=== PATIENT | female | born 1995 | race Caucasian/White ===

== ENCOUNTER 2016-12-03 16:30 | Emergency (ER) | payer MEDICAID ==
[2016-12-03 16:35] VITALS: BP 126/65; PULSE 104; RESP 16; TEMP 97.9; O2SAT 100
[2016-12-03] MEDS ORDERED: DEXAMETHASONE VARIABLE DOSE IVP/PO ONE (16:54)
--- NOTE | 2016-12-03 17:09 | UCPHY ---
H & P Patient Type: New Chief Complaint Nursing Narrative: C/o sore throat, sinus congestion and pain x 2 days. Denies fevers. Time Seen by Provider: 12/03/16 16:49 HPI/ROS: CHIEF COMPLAINT: Sore throat HISTORY OF PRESENT ILLNESS: The patient is a 21-year-old healthy female who comes to the Urgent Care complaining of a sore throat sinus congestion. She has had the symptoms for 2 days. No fevers. No headaches no chest pain. Mild dry cough no shortness of breath no GI or symptoms REVIEW OF SYSTEMS: Constitutional: denies: chills, fever, recent illness, recent injury EENTM: See HPI Respiratory: See HPI Cardiac: denies: chest pain, irregular heart rate, lightheadedness, palpitations Gastrointestinal/Abdominal: denies: abdominal pain, diarrhea, nausea, vomiting, blood streaked stools Genitourinary: denies: dysuria, frequency, hematuria, pain Musculoskeletal: denies: joint pain, muscle pain Skin: denies: lesions, rash, jaundice, bruising Neurological: denies: headache, numbness, paresthesia, tingling, dizziness, weakness Hematologic/Lymphatic: denies: blood clots, easy bleeding, easy bruising Immunologic/allergic: denies: HIV/AIDS, transplant EXAM: GENERAL: Well-appearing, well-nourished and in no acute distress. HEAD: Atraumatic, normocephalic. EYES: Pupils equal round and reactive to light, extraocular movements intact, sclera anicteric, conjunctiva are normal. ENT: erythematous pharynx With swelling, tympanic membranes normal NECK: Normal range of motion, supple without lymphadenopathy or JVD. LUNGS: Breath sounds clear to auscultation bilaterally and equal. No wheezes rales or rhonchi. HEART: Regular rate and rhythm without murmurs, rubs or gallops. ABDOMEN: Soft, nontender, normoactive bowel sounds. No guarding, no rebound. No masses appreciated. BACK: No CVA tenderness, no spinal tenderness, step-offs or deformities EXTREMITIES: Normal range of motion, no pitting or edema. No clubbing or cyanosis. NEUROLOGICAL: Cranial nerves II through XII grossly intact. Normal speech, normal gait. 5/5 strength, normal movement in all extremities, normal sensation PSYCH: Normal mood, normal affect. SKIN: Warm, dry, normal turgor, no visible rashes or lesions. Source: Patient - Personal History LMP (Females 10-55): 22-28 Days Ago Current Tetanus Diphtheria and Acellular Pertussis (TDAP): Yes Tetanus Vaccine Date: within 10 years - Medical/Surgical History Hx Asthma: Yes Hx Chronic Respiratory Disease: No Hx Diabetes: No Hx Cardiac Disease: No Hx Renal Disease: No Hx Cirrhosis: No Hx Alcoholism: No Hx HIV/AIDS: No Hx Splenectomy or Spleen Trauma: No Other PMH: MILD ASTHMA - Family History Significant Family History: Hypertension - Social History Smoking Status: Current every day smoker Alcohol Use: None Drug Use: None Constitutional: Initial Vital Signs Temperature (C) 36.6 C 12/03/16 16:32 Heart Rate 104 H 12/03/16 16:32 Respiratory Rate 16 12/03/16 16:32 Blood Pressure 126/65 H 12/03/16 16:32 O2 Sat (%) 100 12/03/16 16:32 O2 Delivery Mode Room Air Allergies/Adverse Reactions: amoxicillin Allergy (Unknown, Verified 12/03/16 16:35) Unknown Home Medications: Medication Instructions Recorded AZITHROMYCIN [Z-PACK] 250 mg PO DAILY #6 tab 12/03/16 Medical Decision Making ED Course/Re-evaluation: We discussed the rapid strep results and the possibility of different results tomorrow. I will prescribe the patient azithromycin to begin if her PCR is positive. Otherwise we discussed symptom relief with [id number] medications and I will give her dose of Decadron. Differential Diagnosis: Partial list of the Differential diagnosis considered include but were not limited to; pharyngitis, strep throat, tonsillitis, abscess, upper respiratory tract infection and although unlikely based on the history and physical exam, I also considered bronchitis, pneumonia, meningitis, sepsis. I discussed these differential diagnoses and the plan with the patient as well as the usual and expected course. The patient understands that the diagnosis is provisional and that in medicine we are not always correct and that further workup is often warranted. Usual and customary warnings were given. All of the patient's questions were answered. The patient was instructed to return to the emergency department should the symptoms at all worsen or return, otherwise to followup with the physician as we discussed. - Data Points Laboratory Results: 12/03/16 12/03/16 Unknown 16:28 Group A Strep Screen NEGATIVE (NEGATIVE) Group A Strep DNA Pending Medications Given: Discontinued Medications Dexamethasone Sodium Phosphate (Decadron) 10 mg IVP/PO EDNOW ONE Stop: 12/03/16 16:55 Last Admin: 12/03/16 17:22 Dose: 10 mg Departure - Departure Disposition: Home, Routine, Self-Care Clinical Impression: Pharyngitis Qualifiers: Pharyngitis/tonsillitis etiology: unspecified etiology Qualified Code(s): J02.9 - Acute pharyngitis, unspecified Condition: Fair Instructions: Pharyngitis (ED) Referrals: NONE *PRIMARY CARE P,. [Primary Care Provider] - As per Instructions Prescriptions: AZITHROMYCIN [Z-PACK] 250 mg PO DAILY #6 tab - PQRS PQRS Measurement: Not applicable
[2016-12-03] MEDS ORDERED: DEXAMETHASONE 10 MG/ML VIAL ONE (17:16)
== END 2016-12-03 17:23 | disposition home or self-care (01) ==
LOC: CED 16:30
DX: J02.9 Acute pharyngitis, unspecified (principal); F17.210 Nicotine dependence, cigarettes, uncomplicated; J45.909 Unspecified asthma, uncomplicated
CPT/HCPCS: 87880-PO; G0463-PO